=== PATIENT | female | born 1985 | race Caucasian/White ===

== ENCOUNTER 2017-08-31 02:28 | Inpatient (IN) | payer MEDICAID ==
[2017-08-31] MEDS ORDERED: LACTATED RINGER'S 1,000 ML IV (03:12)
[2017-08-31] MEDS ORDERED: CARBOPROST 250 MCG INJ IM ×2 (03:30→19:30)
[2017-08-31] MEDS ORDERED: OXYTOCIN 30 UNITS/LR 500 ML IV ×3 (03:30→19:30)
[2017-08-31] MEDS ORDERED: LIDOCAINE 1% (MPF) 30 ML INJ INJ (03:30)
[2017-08-31] MEDS: LACTATED RINGER'S 1,000 ML IV ×2 (03:48→07:15)
[2017-08-31 03:56] LABS: ADD MAN DIFF? NO
[2017-08-31 04:17] LABS: BASOPHIL # 0.1 10^3/ul (0.0-0.1); BASOPHILS % 0.6 % (0.0-2.0); EOSINOPHILS # 0.1 10^3/ul (0.0-0.5); EOSINOPHILS % 1.1 % (0.0-7.0); HEMATOCRIT 38.3 % (37.0-47.0); HEMOGLOBIN 12.9 g/dl (12.0-16.0); LYMPHOCYTES # 2.2 10^3/ul (0.8-2.9); LYMPHOCYTES % 18.2 % (15.0-51.0); MEAN CORPUSCULAR HEMOGLOBIN 28.9 pg (29.0-33.0); MEAN CORPUSCULAR HGB CONC 33.7 g/dl (32.0-37.0); MEAN CORPUSCULAR VOLUME 85.9 fl (82.0-101.0); MEAN PLATELET VOLUME 11.6 fl (7.4-10.4); MONOCYTE # 0.9 10^3/ul (0.3-0.9); MONOCYTES % 7.3 % (0.0-11.0); NEUTROPHIL # 8.8 10^3/ul (1.6-7.5); NEUTROPHILS % 71.7 % (39.0-77.0); PLATELET COUNT 223 10^3/UL (140-415); RED BLOOD COUNT 4.46 10^6/ul (4.20-5.40)
[2017-08-31 04:17] LABS: WHITE BLOOD COUNT 12.2 10^3/ul (4.8-10.8)
[2017-08-31 04:20] LABS: INR 0.94; PROTIME 12.7 Sec (11.9-14.9)
[2017-08-31 04:21] LABS: PARTIAL THROMBOPLASTIN TIME 30.2 Sec (25.0-35.0)
[2017-08-31] MEDS: OXYTOCIN 30 UNITS/LR 500 ML IV ×2 (04:34→15:10)
[2017-08-31] MEDS ORDERED: FENTAnyl 2MCG/ML-ROPIV 0.2% 100 ML (07:35)
[2017-08-31 08:03] LABS: HEPATITIS B SURFACE ANTIGEN NEGATIVE (NEGATIVE)
[2017-08-31] MEDS ORDERED: FENTAnyl 2MCG/ML-ROPIV 0.2% 100 ML BAG EPI (12:30)
[2017-08-31] MEDS ORDERED: NALOXONE (0.4 MG/ML) INJ IV (12:30)
[2017-08-31] MEDS: METHYLERGONOVINE 0.2 MG INJ IM (14:59)
[2017-08-31] MEDS: MISOPROSTOL 200 MCG TAB PR ×2 (15:01→15:13)
[2017-08-31] MEDS: IBUPROFEN 600 MG TAB PO ×2 (15:24→23:38)
[2017-08-31 17:15] LABS: RAPID PLASMA REAGIN NONREACTIVE (NR)
[2017-08-31] MEDS ORDERED: DEXTROSE 5%-LR 1,000 ML IV (19:24)
[2017-08-31] MEDS ORDERED: ONDANSETRON 4 MG INJ IV (19:30)
[2017-08-31] MEDS ORDERED: ZOLPIDEM 5 MG TAB PO (19:30)
[2017-08-31] MEDS ORDERED: ACETAMINOPHEN 325 MG TAB PO (19:30)
[2017-08-31] MEDS ORDERED: MISOPROSTOL 200 MCG TAB PR (19:30)
[2017-08-31] MEDS ORDERED: DIPHENHYDRAMINE 50 MG INJ IV (19:30)
[2017-08-31] MEDS ORDERED: DIBUCAINE 1% 30 GM OINT PR (19:30)
[2017-08-31] MEDS ORDERED: WITCH HAZEL/GLYCERIN PAD PR (19:30)
[2017-08-31] MEDS ORDERED: METHYLERGONOVINE 0.2 MG INJ IM (19:30)
[2017-08-31] MEDS: OXYCODONE/ASPIRIN (4.88/325) TAB PO (19:53)
[2017-08-31] MEDS: BENZOCAINE 20% 56 ML SPRAY TOP (19:54)
[2017-08-31] MEDS: LANOLIN 7 GM TUBE TOP (19:54)
[2017-08-31] MEDS: LACTATED RINGER'S 1,000 ML IV* (21:13)
[2017-08-31] MEDS: SENNA/DOCUSATE NA (8.6MG/50MG) TAB PO (21:13)
[2017-09-01] MEDS: OXYCODONE/ASPIRIN (4.88/325) TAB PO (02:14)
[2017-09-01] MEDS: IBUPROFEN 600 MG TAB PO ×4 (05:40→23:32)
[2017-09-01] MEDS: SENNA/DOCUSATE NA (8.6MG/50MG) TAB PO (08:52)
[2017-09-01 09:28] LABS: ADD MAN DIFF? NO
[2017-09-01 09:32] LABS: BASOPHIL # 0.1 10^3/ul (0.0-0.1); BASOPHILS % 0.5 % (0.0-2.0); EOSINOPHILS # 0.1 10^3/ul (0.0-0.5); EOSINOPHILS % 0.8 % (0.0-7.0); HEMATOCRIT 31.1 % (37.0-47.0); HEMOGLOBIN 10.3 g/dl (12.0-16.0); LYMPHOCYTES # 1.9 10^3/ul (0.8-2.9); LYMPHOCYTES % 13.3 % (15.0-51.0); MEAN CORPUSCULAR HEMOGLOBIN 28.8 pg (29.0-33.0); MEAN CORPUSCULAR HGB CONC 33.1 g/dl (32.0-37.0); MEAN CORPUSCULAR VOLUME 86.9 fl (82.0-101.0); MEAN PLATELET VOLUME 11.6 fl (7.4-10.4); MONOCYTE # 0.9 10^3/ul (0.3-0.9); NEUTROPHIL # 11.3 10^3/ul (1.6-7.5); NEUTROPHILS % 78.4 % (39.0-77.0); PLATELET COUNT 178 10^3/UL (140-415); RED BLOOD COUNT 3.58 10^6/ul (4.20-5.40)
[2017-09-01 09:32] LABS: WHITE BLOOD COUNT 14.5 10^3/ul (4.8-10.8)
[2017-09-02] MEDS: IBUPROFEN 600 MG TAB PO ×2 (05:36→11:33)
[2017-09-02] MEDS: OXYCODONE/ASPIRIN (4.88/325) TAB PO (07:56)
[2017-09-02] MEDS: MEASLES,MUMPS,RUBELLA VACCINE INJ SC* (09:00)
[2017-09-02] MEDS: DIPHTH/TET/ACEL PERTUSS (ADULT) 0.5 ML VIAL IM* (11:17)
[2017-09-02 11:57] LABS: RUBELLA ANTIBODY - IGG 2.32 index; RUBELLA ANTIBODY - IGM <20.00 AU/mL
== END 2017-09-02 13:42 | disposition home or self-care (01) | DRG 775 ==
LOC: OBT 02:28 → L-D 02:30 → OBT 02:28 → L-D 02:30 → PP1 17:15
PROVIDERS: Obstetrics & Gynecology
PROC: 10E0XZZ Delivery of Products of Conception, External Approach (ICD-10-PCS; principal; 2017-08-31)
PROC: 0W8NXZZ Division of Female Perineum, External Approach (ICD-10-PCS; 2017-08-31)
DX: O48.0 Post-term pregnancy (principal); Z37.0 Single live birth; Z3A.40 40 weeks gestation of pregnancy; O69.81X0 Labor and delivery complicated by cord around neck, without compression, not applicable or unspecified; O36.63X0 Maternal care for excessive fetal growth, third trimester, not applicable or unspecified
CPT/HCPCS: 62319; 76815; 85025; 85610; 85730; 86592; 86762; 86850; 86900; 86901; 87340; 99464